=== PATIENT | male | born 1940 | race Caucasian/White ===

== ENCOUNTER 2017-07-09 16:25 | Inpatient (IN) | payer OTHER ==
[~2017-07-09] VITALS: Ht 165.1 cm; Wt 77.1 kg
[~2017-07-09 16:25] MED LIST: BENAZEPRIL HCL/1 TA1 PO; NOR10 PO; THEOPHYLLINE200 M2 PO
[2017-07-09 16:27] VITALS: Ht 165.1 cm; Wt 77.1 kg
[2017-07-09 17:21] LABS: CALCIUM 8.9 mg/dL (8.5-10.1); CARBON DIOXIDE 23.8 mmol/L (21-32); CHLORIDE SERUM 98 mmol/L (98-107); CREATININE SERUM 1.1 mg/dL (0.7-1.3); GLUCOSE SERUM 110 mg/dL (74-106); POTASSIUM SERUM 3.4 mmol/L (3.5-5.1); SODIUM SERUM 137 mmol/L (136-145)
[2017-07-09 17:23] LABS: BASOPHIL % 0.5 % (0-2); PLATELET COUNT 272 x10^3mcL (130-400); RED CELL DISTRIBUTION WIDTH 13.8 % (11.5-14.5)
[2017-07-09 17:26] LABS: ALKALINE PHOSPHATASE 70 U/L (46-116); ALT/SGPT 20 U/L (16-63); AST/SGOT 19 U/L (15-37); BILIRUBIN TOTAL 0.94 mg/dL (0.20-1.00); TOTAL PROTEIN, SERUM 7.5 g/dL (6.4-8.2)
[2017-07-09] MEDS ORDERED: LOTENSIN40 MG PO (18:26)
[2017-07-09 19:39] VITALS: BP 140/67
[2017-07-09 19:49] LABS: MAGNESIUM 2.2 mg/dL (1.8-2.4); PHOSPHOROUS 3.3 mg/dL (2.5-4.9)
[2017-07-09 19:51] LABS: CHOLESTEROL/HDL RATIO 2.7
[2017-07-09 19:53] LABS: T3 TOTAL 0.72 ng/mL
[2017-07-09 19:58] LABS: FREE T4 1.17 ng/dL (0.76-1.46); FREE THYROXINE INDEX 2.7 ug/dL (1.4-4.5); T4(THYROXINE) 7.8 ug/dL (4.7-13.3)
[2017-07-09] MEDS ORDERED: BENAZEPRIL HCL-1 TA3 PO (20:04)
[2017-07-10 00:34] VITALS: BP 140/67
[2017-07-10 05:49] VITALS: BP 136/72
[2017-07-10 05:51] LABS: CALCIUM 8.5 mg/dL (8.5-10.1); CHLORIDE SERUM 100 mmol/L (98-107); CREATININE SERUM 1.1 mg/dL (0.7-1.3); GLUCOSE SERUM 186 mg/dL (74-106); MAGNESIUM 2.2 mg/dL (1.8-2.4); PHOSPHOROUS 2.9 mg/dL (2.5-4.9); POTASSIUM SERUM 4.1 mmol/L (3.5-5.1); SODIUM SERUM 136 mmol/L (136-145)
[2017-07-10 05:55] LABS: PLATELET COUNT 253 x10^3mcL (130-400); RED CELL DISTRIBUTION WIDTH 13.3 % (11.5-14.5)
[2017-07-10 05:56] LABS: BASOPHIL % 0 % (0-2)
[2017-07-10 08:40] VITALS: BP 142/74
[2017-07-10 13:15] VITALS: BP 128/66
[2017-07-10 13:17] LABS: microscopic required? NO
[2017-07-10 13:32] LABS: UA SPECIFIC GRAVITY <=1.005 (1.005-1.035); urine erythrocyte NEGATIVE (NEGATIVE)
[2017-07-10 13:48] LABS: AMPHETAMINE QUAL UR NONE DETECTED (NEG <=1000)
[2017-07-10 17:04] VITALS: BP 130/69
[2017-07-10 21:06] VITALS: BP 123/63
[2017-07-11 05:21] VITALS: BP 128/71
[2017-07-11 07:54] LABS: PLATELET COUNT 277 x10^3mcL (130-400); RED CELL DISTRIBUTION WIDTH 13.3 % (11.5-14.5)
[2017-07-11 07:57] LABS: BASOPHIL % 0 % (0-2)
[2017-07-11 08:06] LABS: CALCIUM 8.4 mg/dL (8.5-10.1); CARBON DIOXIDE 25.1 mmol/L (21-32); CHLORIDE SERUM 101 mmol/L (98-107); CREATININE SERUM 1.1 mg/dL (0.7-1.3); GLUCOSE SERUM 168 mg/dL (74-106); MAGNESIUM 2.3 mg/dL (1.8-2.4); PHOSPHOROUS 3.3 mg/dL (2.5-4.9); POTASSIUM SERUM 3.8 mmol/L (3.5-5.1); SODIUM SERUM 133 mmol/L (136-145)
[2017-07-11 09:52] VITALS: BP 125/65
[2017-07-11 14:03] VITALS: BP 162/60
[2017-07-11 17:55] VITALS: BP 117/68
[2017-07-11 21:34] VITALS: BP 123/69
[2017-07-12 05:12] VITALS: BP 139/75
[2017-07-12 06:32] LABS: PLATELET COUNT 318 x10^3mcL (130-400); RED CELL DISTRIBUTION WIDTH 13.9 % (11.5-14.5)
[2017-07-12 07:00] LABS: CALCIUM 8.4 mg/dL (8.5-10.1); CARBON DIOXIDE 25.7 mmol/L (21-32); CHLORIDE SERUM 100 mmol/L (98-107); CREATININE SERUM 1.2 mg/dL (0.7-1.3); GLUCOSE SERUM 155 mg/dL (74-106); POTASSIUM SERUM 4.4 mmol/L (3.5-5.1); SODIUM SERUM 136 mmol/L (136-145)
[2017-07-12 07:48] LABS: BASOPHIL % 0 % (0-2)
[2017-07-12 09:51] VITALS: BP 114/74
[2017-07-12] MEDS ORDERED: LEVAQUIN750 MG PO (12:11)
[2017-07-12] MEDS ORDERED: CLINDAMYCIN HC300 MG PO (12:12)
[2017-07-12] MEDS ORDERED: BD LACTINEX1.4 MG PO (12:13)
[2017-07-12 12:48] VITALS: BP 114/74
[2017-07-12 12:53] VITALS: BP 114/74
[2017-07-12 13:07] VITALS: BP 139/78
== END 2017-07-12 14:15 | disposition home health service (06) | DRG 177 ==
LOC: ED 16:25 → DU 18:37
PROVIDERS: Emergency Medicine; Family Medicine
DX: J69.0 Pneumonitis due to inhalation of food and vomit (principal); J96.01 Acute respiratory failure with hypoxia; J44.1 Chronic obstructive pulmonary disease with (acute) exacerbation; E87.6 Hypokalemia; I10 Essential (primary) hypertension; R73.03 Prediabetes; Z68.35 Body mass index [BMI] 35.0-35.9, adult
CPT/HCPCS: 36600; 83880; 84439; J1644; J1956; J2920; J2930; J3490; J7030; J7613; J7620; J7626; J7644; Q0092

== ENCOUNTER 2017-07-16 22:59 | Emergency (ER) | payer OTHER ==
[~2017-07-16 22:59] MED LIST changes: +BD LACTINEX1.4 MG PO; +BENAZEPRIL HCL-1 TA3 PO; +CLINDAMYCIN HC300 MG PO; +LEVAQUIN750 MG PO; +LOTENSIN40 MG PO
[2017-07-17 00:05] LABS: BASOPHIL % 0.2 % (0-2); PLATELET COUNT 358 x10^3mcL (130-400); RED CELL DISTRIBUTION WIDTH 13.9 % (11.5-14.5)
[2017-07-17 00:13] LABS: CALCIUM 8.2 mg/dL (8.5-10.1); CARBON DIOXIDE 30.4 mmol/L (21-32); CHLORIDE SERUM 96 mmol/L (98-107); CREATININE SERUM 1.4 mg/dL (0.7-1.3); GLUCOSE SERUM 112 mg/dL (74-106); POTASSIUM SERUM 3.2 mmol/L (3.5-5.1); SODIUM SERUM 130 mmol/L (136-145)
[2017-07-17 00:19] LABS: ALBUMIN 3.5 g/dL (3.4-5.0); ALKALINE PHOSPHATASE 48 U/L (46-116); ALT/SGPT 34 U/L (16-63); AST/SGOT 14 U/L (15-37); BILIRUBIN TOTAL 0.8 mg/dL (0.20-1.00); CHOLESTEROL 147 mg/dL (<200); PHOSPHOROUS 3.7 mg/dL (2.5-4.9); TOTAL PROTEIN, SERUM 6.5 g/dL (6.4-8.2); URIC ACID 6.4 mg/dL (3.5-7.2)
[2017-07-17 00:21] LABS: HDL CHOLESTEROL 64 mg/dL (40-60)
[2017-07-17 01:38] VITALS: BP 126/77
== END 2017-07-17 01:38 | disposition home or self-care (01) ==
LOC: ED 22:59
PROVIDERS: Emergency Medicine
DX: J44.1 Chronic obstructive pulmonary disease with (acute) exacerbation (principal); I10 Essential (primary) hypertension; Z86.73 Personal history of transient ischemic attack (TIA), and cerebral infarction without residual deficits
CPT/HCPCS: 36415; 36600; 83880; J7644

== ENCOUNTER 2017-07-17 15:35 | Emergency (ER) | payer OTHER ==
[~2017-07-17] VITALS: Ht 160 cm; Wt 86.2 kg
[2017-07-17 15:41] VITALS: Ht 160 cm; Wt 86.2 kg
[2017-07-17 17:29] VITALS: BP 102/55
== END 2017-07-17 17:38 | disposition home or self-care (01) ==
LOC: ED 15:35
DX: J44.1 Chronic obstructive pulmonary disease with (acute) exacerbation (principal); I10 Essential (primary) hypertension

== ENCOUNTER 2018-03-27 22:32 | Emergency (ER) | payer OTHER ==
[~2018-03-27] VITALS: Ht 162.6 cm; Wt 92.7 kg
[~2018-03-27 22:32] MED LIST changes: +ADV250/50 INH; +ATORVASTATIN CA40 M1 PO; +MEDDP PO; +ZITHROMAX500 MG PO
[2018-03-28 00:39] VITALS: BP 113/71
== END 2018-03-28 00:39 | disposition home or self-care (01) ==
LOC: ED 22:32
DX: J44.1 Chronic obstructive pulmonary disease with (acute) exacerbation (principal); I10 Essential (primary) hypertension
CPT/HCPCS: J7620

== ENCOUNTER 2018-03-28 18:41 | Emergency (ER) | payer OTHER ==
[~2018-03-28] VITALS: Ht 162.6 cm; Wt 90.7 kg
[2018-03-28 18:44] VITALS: Ht 162.6 cm; Wt 90.7 kg
[2018-03-28 20:49] VITALS: BP 127/86
== END 2018-03-28 20:49 | disposition home or self-care (01) ==
LOC: ED 18:41
DX: J44.9 Chronic obstructive pulmonary disease, unspecified (principal); F41.9 Anxiety disorder, unspecified; I10 Essential (primary) hypertension
CPT/HCPCS: J7512; Q0092

== ENCOUNTER 2018-09-18 20:26 | Inpatient (IN) | payer OTHER ==
[~2018-09-18] VITALS: Ht 162.6 cm; Wt 91.9 kg
[2018-09-18 20:28] VITALS: Ht 162.6 cm; Wt 91.9 kg
--- NOTE | 2018-09-18 20:38 | NUR ---
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 PT STS HX COPD. PT DENIES HOME O2 USE, DENIES SMOKING. PT STS THAT HE WAS JUST SITTING AT HOME WHEN HE BECAME SOB, TOOK "SEVERAL" PUFFS FROM HIS INHALER, W/ NO RELIEF. PT REPORTS NO OTHER COMPLAINTS. PT DENIES CHEST PAIN, DENIES FEVER/CHILLS. PT SITTING IN POSITION OF COMFORT, HOB ELEVATED. PT PLACED ON GREEN BUILDING ENERGY ENGINEER AND PULSE OX. PT SATURATING AT 99% ON RA. RESPS E/U, GOOD CHEST RISE AND FALL NOTED. NAD NOTED AT THIS TIME. AT BEDSIDE.
--- NOTE | 2018-09-18 20:49 | NUR ---
MEDICATION ADMINISTERED PER MD ORDER
--- NOTE | 2018-09-18 21:00 | NUR ---
X-RAY AT BEDSIDE
[2018-09-18 21:03] LABS: BASOPHIL % 0.5 % (0-2); PLATELET COUNT 280 x10^3mcL (130-400); RED CELL DISTRIBUTION WIDTH 14.1 % (11.5-14.5)
[2018-09-18 21:23] LABS: CARBON DIOXIDE 23.3 mmol/L (21-32); CHLORIDE SERUM 102 mmol/L (98-107); CREATININE SERUM 1.2 mg/dL (0.7-1.3); GLUCOSE SERUM 104 mg/dL (74-106); POTASSIUM SERUM 3.6 mmol/L (3.5-5.1); SODIUM SERUM 140 mmol/L (136-145)
[2018-09-18 21:29] LABS: ALBUMIN 4.2 g/dL (3.4-5.0); ALKALINE PHOSPHATASE 61 U/L (46-116); ALT/SGPT 21 U/L (16-63); AST/SGOT 14 U/L (15-37); TOTAL PROTEIN, SERUM 7.3 g/dL (6.4-8.2)
--- NOTE | 2018-09-18 21:30 | NUR ---
PT AWAKE AND ALERT, SITTING IN POSITION OF COMFORT. HOB ELEVATED. RT AT BEDSIDE DELIVERING BREATHING TREATMENT. NAD NOTED AT THIS TIME. AWAITING RESULTS.
--- NOTE | 2018-09-18 22:08 | NUR ---
PT STS "I'M HAVING A HELL OF A TIME BREATHING. CAN I HAVE SOME MORE OXYGEN?" O2 INCREASED TO 4L VIA NC. 02 SAT 99%. WILL CONTINUE TO MONITOR
--- NOTE | 2018-09-18 22:26 | NUR ---
PT AWAKE AND ALERT, SPEAKING IN FULL SENTENCES, ANSWERING QUESTIONS APPROPRIATELY. HOB ELEVATED, SITTING IN POSITION OF COMFORT. PT STS THAT HE IS BREATHING "A LITTLE BETTER." VSS, NAD NOTED. CALL LIGHT W/IN REACH, AT BEDSIDE. WILL CONTINUE TO MONITOR.
--- NOTE | 2018-09-18 23:29 | NUR ---
PT AWAKE AND ALERT, SPEAKING IN FULL SENTENCES. HOB ELEVATED, PT SITTING IN POSITION OF COMFORT. VSS, RESPS E/U, NAD NOTED. PT SATURATING 98% ON RA. AT BEDSIDE. CALL LIGHT W/IN REACH.
[2018-09-19] VITALS (8 sets, daily range): BP systolic 112–130; BP diastolic 55–72
--- NOTE | 2018-09-19 00:36 | NUR ---
BREATHING TX COMPLETED AT BEDSIDE
[2018-09-19] MEDS ORDERED: LOTENSIN40 MG (00:56)
[2018-09-19] MEDS ORDERED: ALBUTEROL0.63 MG/3 (00:56)
[2018-09-19] MEDS ORDERED: NORVASC2.5 MG (00:56)
[2018-09-19] MEDS ORDERED: ANORO ELLIPTA1 POW (00:57)
--- NOTE | 2018-09-19 01:03 | NUR ---
REPORT GIVEN TO BECCA CASTILLO
--- NOTE | 2018-09-19 01:45 | NUR ---
RECIEVED PT FROM ED AT THIS TIME VIA [facility] BY NURSE. IS AT BEDSIDE. PT IS AAOX4 DENIES HEADACHE OR DIZZINESS. TELE #[id number] SR WITH BBB AND ELEVATED T WAVE. PT DENIES ANY CHEST PAIN OR PRESSURE. BREATHING EVEN AND UNLABORED WITH NO SOB NOTED, CTA ON NC 2L/MIN 97% O2SAT. PT STATES HE DOES NOT REQUIRE SUPPLEMENTAL O2 AT HOME. ABD DISTENDED, ACTIVE BOWEL SOUNDS, LAST BM 09/18/18 FORMED STOOL. PT DENIES ABD PAIN, N/V. NO EDEMA NOTED. PALPABLE PULSES. BUE ECCHYMOSIS NOTED. PT REFUSED TO CONTINUE WITH SKIN ASSESMENT ON BUTTOCKS AREA, PER PT DOES NOT HAVE ANY WOUNDS. PT AMBULATORY. PT WEARS EYE GLASSESS. IV RAC PATENT, SL. PT DENIES ANY PAIN/DISCOMFORT AT THIS TIME. CALL BUTTON WITHIN REACH. WILL CONTINUE TO MONITOR.
--- NOTE | 2018-09-19 03:10 | NUR ---
RT AT BEDSIDE.
--- NOTE | 2018-09-19 03:47 | NUR ---
PT AWAKE, DENIES ANY PAIN. NC IN PLACE NO SOB NOTED. CALL BUTTON WITHIN REACH. WILL MONITOR.
--- NOTE | 2018-09-19 05:21 | NUR ---
PT AWAKE, DENIES ANY PAIN. NC 2L/MIN WITH NO SOB NOTED. PT SLEPT POORLY THROUGHOUT THE NIGHT. MEDICATED PER EMAR. PT DENIES ANY DISTRESS/DISCOMFORT. QAMAR JIMENES. CALL BUTTON WITHIN REACH. WILL CONTINUE TO MONITOR AND ENDORSE CARE TO DAY SHIFT RN.
--- NOTE | 2018-09-19 07:26 | NUR ---
PT AWAKE, NO DISTRESS NOTED ENDORSED CARE TO DAY SHIFT RN, ALL QUESTIONS ADDRESSED.
--- NOTE | 2018-09-19 10:24 | NUR ---
AT 0710 - RECEIVED PATIENT FROM NIGHT NURSE. AWAKE, ALERT AND ORIENTED. PATIENT EXPRESSED ANXIETY. NIGHT NURSE HAD PLACED CALL FOR DR FERNÁNDEZ FOR ORDERS. PATIENT SITTING UP IN BED. RESPIRATIONS REGULAR. REQUESTED BREATHING TREATMENT AND RT COMING TO ADMINISER. MONITOR SHOWING SINUS TACHYCARDIA; RATE 105. NO C/O CHEST PAIN AT 0750 - ANOTHER CALL PLACED FOR DR HERNANDEZ FOR PATIENT'S ANXIETY. AT 0830 - PATIENT RESTING QUIETLY BUT SAYS THAT HE STIL FEELS ANXIOUS. NO CALL RECEIVED FROM THE DOCTOR. AT 0850 - CALL PLACED FOR THE DOCTOR. AT 0900 - RECEIVED CALL FROM DR HERNANDEZ WITH ORDER FOR XANEX 0.5 MG BID. AT 0915 - GIVEN XANAX 0.5 MG PER EMAR. AT 1035 - DR HERNANDEZ WITH PATIENT.
[2018-09-19] MEDS ORDERED: PREDNISONE20 MG PO (10:59)
--- NOTE | 2018-09-19 11:41 | NUR ---
IF PATIENT FEELS BETTER THIS AFTERNOON, HE MAY BE DISCHARGE HOME.
--- NOTE | 2018-09-19 14:40 | NUR ---
PATIENT INFORMED NURSE THAT HE DOES NOT WANT TO BE DISCHARGED HOME TODAY. HE WANTS TO STAY TODAY AND BE DISCHARGED TOMORROW. PATIENT APPEARS MORE RELAXED THIS AFTERNOON. RESPIRATIONS REGULAR. SOME SOB AND ANXIETY IF OFF SUPPLIMENTAL O2. REPROTS GOOD EFFECT FROM BREATHIGN TREATMENTS.
--- NOTE | 2018-09-19 17:20 | NUR ---
RESTING QUIETLY. RESPIRATIONS REGULAR. NO REPORTABLE EVENTS.
--- NOTE | 2018-09-19 19:24 | NUR ---
CARE ENDORSED TO NIGHT NURSE
--- NOTE | 2018-09-19 20:00 | NUR ---
RECEIVED PT IN BED, RESTING. A/O X4, [place]. DENIES HEADACHE/DIZZINESS. RESP. EVEN AND UNLABORED. 02 AT 2L/MIN VIA NC, SAT. WELL, NO ACUTE DISTRESS NOTED. DENIES CHEST PAIN OR ANY DISCOMFORT AT THIS TIME. HL TO RAC, INTACT AND PATENT. VOIDING FREELY. AMBULATORY. CALL LIGHT WITHIN REACH. WILL CONTINUE TO MONITOR.
--- NOTE | 2018-09-20 01:46 | NUR ---
RESTING QUIETLY WITH EYES CLOSED, APPEARS ASLEEP, EASILY AROUSABLE. RESP. EVEN AND UNLABORED. NO ACUTE DISTRESS NOTED. CALL LIGHT WITHIN REACH. WILL CONTINUE TO MONITOR.
[2018-09-20 04:39] VITALS: BP 123/61
--- NOTE | 2018-09-20 06:08 | NUR ---
SLEPT WELL. NO COMPLAINTS NOTED. DUE MEDS GIVEN ORDERED, IRMA. WELL. RESP. EVEN AND UNLABORED. NO ACUTE DISTRESS NOTED. AFEBRILE AND VITAL SIGNS STABLE. CALL LIGHT WITHIN REACH. WILL CONTINUE TO MONITOR.
--- NOTE | 2018-09-20 07:15 | NUR ---
RECEIVED REPORT FROM JASWANT CASTILLO. PT RESTING COMFORTABLY IN BED. ALL NEEDS MET. SALINE LOCK TO RAC IS PATENT AND INTACT. NO REDNESS OR PAIN. PT ON ROOM AIR. NO C/O SOB AND NO DISTRESS NOTED. TELE # [phone] PT DENIES CHEST PAIN. ALL QUESTIONS AND CONCERNS ADDRESSED.
--- NOTE | 2018-09-20 08:48 | NUR ---
DR HERNANDEZ IN TO SEE AND ASSESS PATIENT. PT RESPOTS FEELING WELL. DR HERNANDEZ STATED THAT PT IS STABLE FOR DISCHARGE. PT VERBALIZED UNDERSTANDING AND HAD NO QUESTIONS. PT STATED THAT HE WILL NOT HAVE TRANSPORTATION UNTIL 13:00.
[2018-09-20 09:23] VITALS: BP 111/57
[2018-09-20 10:35] VITALS: BP 111/57
[2018-09-20 13:51] VITALS: BP 96/47
--- NOTE | 2018-09-20 14:06 | NUR ---
PT STABLE FOR DISCHARGE PER MD. DISCHARGE INSTRUCTIONS AND SUMMARY DISCUSSED WITH PATIENT. PT VERBALIZED UNDERSTANDING AND AGREES TO FOLLOW UP WITH PCP. ID BANDS CUT. IV REMOVED. TELE MONITOR REMOVED. MONITOR NOTIFIED. PT ESCORTED TO LOBBY VIA WHEELCHAIR.
== END 2018-09-20 14:05 | disposition home or self-care (01) | DRG 192 ==
LOC: ED 20:26 → DU 09-19 00:35
PROVIDERS: Emergency Medicine; ADMIT Internal Medicine Pulmonary Disease
DX: J44.1 Chronic obstructive pulmonary disease with (acute) exacerbation (principal); I10 Essential (primary) hypertension; Z87.891 Personal history of nicotine dependence; Z87.01 Personal history of pneumonia (recurrent); Z86.73 Personal history of transient ischemic attack (TIA), and cerebral infarction without residual deficits
CPT/HCPCS: 36600; 83880; 85378; G0378; J1650; J2920; J7512; J7613; J7620; Q0092

== ENCOUNTER 2018-09-25 21:05 | Emergency (ER) | payer OTHER ==
[~2018-09-25] VITALS: Ht 162.6 cm; Wt 88.9 kg
[~2018-09-25 21:05] MED LIST changes: +ALBUTEROL0.63 MG/3; +ANORO ELLIPTA1 POW; +LOTENSIN40 MG; +NORVASC2.5 MG; +PREDNISONE20 MG PO
[2018-09-25 21:08] VITALS: Ht 162.6 cm; Wt 88.9 kg
[2018-09-25 21:58] LABS: PLATELET COUNT 284 x10^3mcL (130-400); RED CELL DISTRIBUTION WIDTH 14.1 % (11.5-14.5)
[2018-09-25 22:15] LABS: ALBUMIN 3.9 g/dL (3.4-5.0); ALKALINE PHOSPHATASE 48 U/L (46-116); ALT/SGPT 28 U/L (16-63); AST/SGOT 8 U/L (15-37); BILIRUBIN TOTAL 0.97 mg/dL (0.20-1.00); CALCIUM 8.9 mg/dL (8.5-10.1); CHOLESTEROL 194 mg/dL (<200); CREATININE SERUM 1.4 mg/dL (0.7-1.3); GLUCOSE SERUM 110 mg/dL (74-106); LIPASE 97 IU/L (73-393); TOTAL PROTEIN, SERUM 6.7 g/dL (6.4-8.2)
[2018-09-25 22:21] LABS: TRIGLYCERIDES 267 mg/dL (<150)
[2018-09-25 22:23] LABS: CHOLESTEROL/HDL RATIO 2.5; HDL CHOLESTEROL 77 mg/dL (40-60); T3 TOTAL 0.84 ng/mL
[2018-09-25 22:24] LABS: CARBON DIOXIDE 25.7 mmol/L (21-32); CHLORIDE SERUM 97 mmol/L (98-107); POTASSIUM SERUM 3.6 mmol/L (3.5-5.1); SODIUM SERUM 134 mmol/L (136-145)
[2018-09-25 22:32] LABS: FREE T4 1.24 ng/dL (0.76-1.46); FREE THYROXINE INDEX 2.9 ug/dL (1.4-4.5)
[2018-09-26 00:31] VITALS: BP 114/62
== END 2018-09-26 00:31 | disposition home or self-care (01) ==
LOC: ED 21:05
PROVIDERS: Specialist
DX: J44.1 Chronic obstructive pulmonary disease with (acute) exacerbation (principal); I10 Essential (primary) hypertension
CPT/HCPCS: 36600; 83880; 84439; J2930; J7030; J7613; J7644; Q0092

== ENCOUNTER 2019-05-07 19:36 | Emergency (ER) | payer OTHER ==
[~2019-05-07] VITALS: Ht 162.6 cm; Wt 88.0 kg
[2019-05-07 19:55] VITALS: Ht 162.6 cm; Wt 88.0 kg
[2019-05-07 20:26] LABS: BASOPHIL % 0.2 % (0-2); PLATELET COUNT 312 x10^3mcL (130-400); RED CELL DISTRIBUTION WIDTH 14.5 % (11.5-14.5)
[2019-05-07 20:32] LABS: CALCIUM 9.4 mg/dL (8.5-10.1); CARBON DIOXIDE 24.6 mmol/L (21-32); CHLORIDE SERUM 102 mmol/L (98-107); CREATININE SERUM 1.2 mg/dL (0.7-1.3); GLUCOSE SERUM 189 mg/dL (74-106); POTASSIUM SERUM 3.9 mmol/L (3.5-5.1); SODIUM SERUM 137 mmol/L (136-145)
[2019-05-07 20:38] LABS: ALBUMIN 4.3 g/dL (3.4-5.0); ALKALINE PHOSPHATASE 63 U/L (46-116); ALT/SGPT 23 U/L (16-63); AST/SGOT 14 U/L (15-37); BILIRUBIN TOTAL 0.9 mg/dL (0.20-1.00); TOTAL PROTEIN, SERUM 7.4 g/dL (6.4-8.2)
[2019-05-08 02:42] VITALS: BP 118/62
== END 2019-05-08 02:42 | disposition home or self-care (01) ==
LOC: ED 19:36
DX: J44.1 Chronic obstructive pulmonary disease with (acute) exacerbation (principal); I10 Essential (primary) hypertension
CPT/HCPCS: 36415; 87804